=== PATIENT | male | born 1945 ===

== ENCOUNTER 2020-08-31 08:16 | Outpatient (CLI) | payer OTHER | END 2020-08-31 17:41 | disposition home or self-care (01) | LOC: PPH VACUNA 08:16 | PROVIDERS: ATTEND Emergency Medicine Pediatric Emergency Medicine | DX: Z23 Encounter for immunization (principal) ==

== ENCOUNTER → 2020-09-24 | Outpatient (CLI) | payer OTHER | END | disposition home or self-care (01) | LOC: PPH VACUNA 09-20 | PROVIDERS: ATTEND Emergency Medicine Pediatric Emergency Medicine | DX: Z23 Encounter for immunization (principal) ==

== ENCOUNTER 2021-11-08 08:00 | Outpatient (CLI) | payer OTHER | END 2021-11-08 08:30 | disposition home or self-care (01) | LOC: PPH VACUNA 08:00 | PROVIDERS: ATTEND Emergency Medicine Pediatric Emergency Medicine | DX: Z23 Encounter for immunization (principal) ==